=== PATIENT | male | born 1990 | race Caucasian/White ===

== ENCOUNTER → 2021-11-24 | Outpatient (CLI) | payer OTHER ==
--- NOTE | 2021-11-24 16:44 | DIREP ---
PROCEDURE:MRI JOINT UPPER EXTREMITY-RT W/O COMPARISON:None. INDICATIONS:M25.511 PAIN IN RIGHT SHOULDER TECHNIQUE:A variety of imaging planes and parameters were utilized for visualization of suspected pathology. Images were performed without intravenous gadolinium contrast. FINDINGS: ROTATOR CUFF:Moderate supraspinatus and to lesser extent infraspinatus tendinosis without measurable tear. Teres minor tendon intact. Subscapularis tendon demonstrates normal signal and morphology. BICEPS TENDON:Biceps tendon shows normal signal, morphology and course. MUSCLES:Muscles proportionate without atrophy. LIGAMENTS:Inferior glenohumeral ligament appears intact. Superior and middle glenohumeral ligaments not well assessed without arthrographic contrast. LABRUM:No obvious labral tear on this non-arthrogram MR. AC JOINT:AC joint maintained. No widening or clavicular offset. Coracoclavicular ligaments intact. GLENOHUMERAL JT: Glenoid and humeral articular cartilage appear intact, the humerus appear centered within the glenoid fossa. ACROMION:Type 2 acromion, no os acromiale. Acromiohumeral interval 8-9 mm. BONES:Marrow signal is age appropriate. No fracture or suspicious lesion. OTHER:Negative. CONCLUSION: Supraspinatus and infraspinatus tendinosis without measurable tear. Dictated by: Jono Carbone M.D. on 11/24/2021 at 03:33 PM Read in [place]
== END | disposition home or self-care (01) ==
LOC: RAD 13:42
PROVIDERS: ATTEND Nurse Practitioner
DX: M25.511 Pain in right shoulder (principal)
CPT/HCPCS: 73221-RT